=== PATIENT | male | born 1975 ===

== ENCOUNTER 2018-03-26 08:53 | Outpatient (CLI) | payer OTHER ==
[~2018-03-26] VITALS: Ht 172.7 cm; Wt 95.3 kg
[2018-03-26] MEDS ORDERED: FLONASE16 GM NASAL (10:55)
== END 2018-03-26 09:15 | disposition home or self-care (01) ==
LOC: OFIC 805 08:53
DX: H60.8X3 Other otitis externa, bilateral (principal); J31.0 Chronic rhinitis

== ENCOUNTER 2018-04-25 10:32 | Outpatient (CLI) | payer OTHER ==
[~2018-04-25] VITALS: Ht 152.4 cm; Wt 95.3 kg
[~2018-04-25 10:32] MED LIST: FLONASE16 GM NASAL
== END 2018-04-25 10:45 | disposition home or self-care (01) ==
LOC: OFIC 805 10:32
DX: H60.8X3 Other otitis externa, bilateral (principal)